=== PATIENT | female | born 1965 | race Caucasian/White ===

== ENCOUNTER 2017-02-06 10:14 | Emergency (ER) | payer BC ==
--- NOTE | ~2017-02-06 | CR132 ---
[facility]. [facility] A Service of [facility] & [facility] / [facility] RADIOLOGY TEXT RESULTS PATIENT: YASMIN VEGA LOCATION: SED : 65 UNIT #: [id number] AGE: [address]: Gina Elliott APRN SEX: F ORDER DR: [id number] [place] [id number] E MR#: [id number] Acc #: [id number] NAME: YASMIN VEGA : 1965 SEX: F STUDY DATE/TIME: 02/06/2017 10:31 UNIT: SED ROOM: STUDY DESCRIPTION: CR Forearm 2 View Lt Attending Physician: Gina Elliott A.P.R.N. Ordering Physician: Gina Barnhart A.P.R.N. Primary Care Physician: Primary Care Physician No MEDICAL IMAGING REPORT This report is preliminary unless electronic signature is present. EXAM Left forearm 02/07/2016 INDICATION Soft tissue swelling and pain in the forearm since last Saturday after lifting hay myriam. FINDINGS AP and lateral views of the forearm show no evidence of fracture or destructive bone lesion. No periosteal elevation is seen. No radiodense foreign bodies are noted. Adjacent soft tissue structures are normal. IMPRESSION Normal forearm. Dictated by... Aayush Angulo Jr., M.D. THIS IS AN ELECTRONICALLY VERIFIED REPORT Aayush Angulo Jr., M.D. at 02/06/2017 3:46 PM MARTINA/eliz TD: 02/06/2017 15:23 JOB #: [id number] MEDICAL IMAGING REPORT Page 1 of 1
== END 2017-02-06 11:20 | disposition home or self-care (01) ==
LOC: SED 10:14
DX: S50.12XA Contusion of left forearm, initial encounter (principal); Z88.0 Allergy status to penicillin; X58.XXXA Exposure to other specified factors, initial encounter; Y92.098 Other place in other non-institutional residence as the place of occurrence of the external cause
CPT/HCPCS: 73090; 99283